=== PATIENT | male | born 1965 | race Caucasian/White ===

== ENCOUNTER → 2016-07-16 | Outpatient (CLI) | payer BC | LOC: KOH-I 09:29 | DX: S06.0X9A Concussion with loss of consciousness of unspecified duration, initial encounter (principal); V89.2XXA Person injured in unspecified motor-vehicle accident, traffic, initial encounter; R52 Pain, unspecified | CPT/HCPCS: 71010; 71101; 73502 ==

== ENCOUNTER → 2016-07-29 | Outpatient (CLI) | payer OTHER, BC | LOC: KOH-I 08:00 → CT 08-07 08:30 | DX: S06.0X9A Concussion with loss of consciousness of unspecified duration, initial encounter (principal); G31.9 Degenerative disease of nervous system, unspecified; V89.2XXA Person injured in unspecified motor-vehicle accident, traffic, initial encounter; Y92.410 Unspecified street and highway as the place of occurrence of the external cause | CPT/HCPCS: 70450 ==